=== PATIENT | female | born 1945 | race Caucasian/White ===

== ENCOUNTER 2018-12-09 16:22 | Outpatient (REF) | payer MEDICARE, OTHER, SELFPAY ==
[2018-12-09 19:50] LABS: Albumin 3.6 g/dL (3.4-5.0); BUN 20 mg/dL (7-18); CREATININE 1.07 mg/dL (0.55-1.02); Calcium 9.2 mg/dL (8.5-10.1); Chloride 104 mmol/L (98-107); Estimated GFR 50.41 (mL/min/1.73m2); Glucose 92 mg/dL (70-100); PHOSPHORUS 4.6 mg/dL (2.6-4.7); Potassium 4.1 mmol/L (3.5-5.1); Sodium 143 mmol/L (136-145)
[2018-12-09 19:53] LABS: HCT 37.6 % (36.0-46.0); HGB 12.3 g/dL (12.0-15.5); Mean Corp. HGB Concentration 32.7 g/dL (32.0-36.0); Mean Corpuscular Hemoglobin 29.4 pg (27.0-33.0); Mean Corpuscular Volume 89.7 fL (80-95); Mean Platelet Volume 11.6 fL (8.0-11.0); Platelet Count 244 x1000/uL (130-400); RBC 4.19 m/cumm (4.00-5.20); RBC Distribution Width 12.9 % (11.7-14.6); White Blood Cell Count 6.72 k/cumm (4.4-10.8)
[2018-12-12 09:46] LABS: Parathyroid Hormone,Intact 40 pg/ml (19-88)
[2018-12-14 14:43] LABS: 25-Hydroxy D Total 46 ng/mL; 25-Hydroxy D2 <4.0 ng/mL; 25-Hydroxy D3 46 ng/mL
== END 2018-12-09 16:42 ==
LOC: NCHCN 16:22
PROVIDERS: PCP Internal Medicine; Visit Provider Internal Medicine
DX: E55.9 Vitamin D deficiency, unspecified (principal); I10 Essential (primary) hypertension; R25.2 Cramp and spasm; M19.90 Unspecified osteoarthritis, unspecified site; N13.30 Unspecified hydronephrosis
CPT/HCPCS: 80069; 82306; 85027; 83970; 84550

== ENCOUNTER 2018-12-14 15:23 | Outpatient (REF) | payer MEDICARE, OTHER, SELFPAY ==
[2018-12-14 21:24] LABS: Creatinine,Urine 52.61 mg/dL
[2018-12-14 21:36] LABS: Total Volume 1900 ml
[2018-12-16 09:22] LABS: Calcium Urine 2.4 mg/dl; Calcium Urine 24 hr 46 mg/24hr (100-300); Uric Acid Urine 25.3 mg/dl; Uric Acid Urine 24hr 481 mg/24h (250-750)
[2018-12-16 14:37] LABS: Oxalate Conc (mmol/L) 0.12 mmol/L; Oxalate Concentration 10.6 mg/L; Oxalate, U 0.23 mmol/24 h; Oxalate, U 20.2 mg/24 h (9.7 - 40.5); Urine Volume 1900 mL
== END 2018-12-14 15:43 ==
LOC: NCHCN 15:23
PROVIDERS: PCP Internal Medicine; Visit Provider Internal Medicine
DX: N13.30 Unspecified hydronephrosis (principal)
CPT/HCPCS: 81050; 82340; 82570; 83945; 84560

== ENCOUNTER 2019-11-16 13:07 | Outpatient (REF) | payer MEDICARE, OTHER, SELFPAY ==
[2019-11-16 19:53] LABS: Anion Gap 7.5 mmol/L (3-11); BUN 23 mg/dL (7-18); CO2 29.5 mmol/L (21.0-32.0); Calcium 8.8 mg/dL (8.5-10.1); Chloride 107 mmol/L (98-107); Glucose 88 mg/dL (74-106); Potassium 4.2 mmol/L (3.5-5.1); Sodium 144 mmol/L (136-145)
[2019-11-16 20:02] LABS: HCT 34.5 % (36.0-46.0); Mean Corp. HGB Concentration 31.9 g/dL (32.0-36.0); Mean Corpuscular Hemoglobin 28.8 pg (27.0-33.0); Mean Corpuscular Volume 90.3 fL (80-95); Mean Platelet Volume 11.5 fL (8.0-11.0); Platelet Count 240 x1000/uL (130-400); RBC 3.82 m/cumm (4.00-5.20); RBC Distribution Width 12.9 % (11.7-14.6); White Blood Cell Count 4.13 k/cumm (4.4-10.8)
== END 2019-11-16 13:27 ==
LOC: NCHCN 13:07
PROVIDERS: PCP Internal Medicine; Visit Provider Internal Medicine
DX: D64.9 Anemia, unspecified (principal); I10 Essential (primary) hypertension; M25.511 Pain in right shoulder
CPT/HCPCS: 80048; 85027

== ENCOUNTER → 2020-11-11 13:33 | Outpatient (BNVA) | payer MEDICARE, OTHER, SELFPAY | PROVIDERS: PCP Internal Medicine; Visit Provider Psychiatry & Neurology Neurology | DX: G20 Parkinson's disease (principal); R26.89 Other abnormalities of gait and mobility; H54.7 Unspecified visual loss; K59.00 Constipation, unspecified | CPT/HCPCS: 99205 ==

== ENCOUNTER 2020-12-05 20:19 | Outpatient (REF) | payer MEDICARE, OTHER, SELFPAY ==
[2020-12-05 19:12] LABS: HCT 33.8 % (36.0-46.0); MCH 29.5 pg (27.0-33.0); MCHC 32.5 % (32.0-36.0); MCV 90.6 fL (80-95); MPV 11.4 fL (8.0-11.0); Platelet Count 251 10^3/uL (130-400); RBC 3.73 10^6/uL (3.93-5.22); RDW 12.9 % (11.7-14.6); WBC 5.01 10^3/uL (4.4-10.8)
[2020-12-05 19:40] LABS: ALT 11 U/L (14-59); AST 20 U/L (15-37); Albumin 3.4 g/dL (3.4-5.0); Alkaline Phosphatase 52 U/L (46-116); Anion Gap 8.1 mmol/L (3-11); BUN 31 mg/dL (7-18); Bilirubin, Total 0.3 mg/dL (0.2-1.0); CO2 27.9 mmol/L (21.0-32.0); CREATININE 1.1 mg/dL (0.55-1.02); Calcium 8.8 mg/dL (8.5-10.1); Chloride 105 mmol/L (98-107); Estimated GFR 48.55 (mL/min/1.73m2); Glucose 103 mg/dL (74-106); Potassium 4.3 mmol/L (3.5-5.1); Sodium 141 mmol/L (136-145); TSH 1.34 uIU/mL (0.36-3.74); Total Protein 6.9 g/dL (6.4-8.2)
== END 2020-12-05 20:20 | disposition home or self-care (01) ==
LOC: NCHCN 20:19
PROVIDERS: PCP Internal Medicine; Visit Provider Internal Medicine
DX: R63.4 Abnormal weight loss (principal)
CPT/HCPCS: 80053; 85027; 84443

== ENCOUNTER → 2020-12-09 14:25 | Outpatient (BNVA) | payer MEDICARE, OTHER, SELFPAY | PROVIDERS: PCP Internal Medicine; Referring Provider Internal Medicine; Visit Provider Psychiatry & Neurology Neurology | DX: G20 Parkinson's disease (principal); I10 Essential (primary) hypertension; E78.5 Hyperlipidemia, unspecified | CPT/HCPCS: 99215 ==

== ENCOUNTER 2020-12-11 15:33 | Outpatient (REF) | payer MEDICARE, SELFPAY ==
[2020-12-11 16:10] LABS: Reticulocyte 0.6 % (0.5-2.4)
[2020-12-11 16:20] LABS: Iron 40 ug/dL (50-170); Total Iron Binding Capacity 281 ug/dL (250-450); Transferrin Sat 14 % (15-50)
[2020-12-11 16:47] LABS: Ferritin 112 ng/mL (8-252); Vitamin B12 304 pg/mL (193-986)
[2020-12-16 13:44] LABS: IgA 323 mg/dL (85-499); Interpretation (See Note); Tissue Transglutaminase IgA <1.2 U/mL (<4.0)
== END 2020-12-11 15:34 | disposition home or self-care (01) ==
LOC: NCHCN 15:33
PROVIDERS: PCP Internal Medicine; Visit Provider Internal Medicine
DX: D64.9 Anemia, unspecified (principal); R63.4 Abnormal weight loss
CPT/HCPCS: 82784; 83516; 82607; 82728; 83540; 83550; 85045

== ENCOUNTER → 2021-03-10 10:22 | Outpatient (BNVA) | payer MEDICARE, OTHER, SELFPAY | PROVIDERS: PCP Internal Medicine; Visit Provider Psychiatry & Neurology Neurology | DX: G20 Parkinson's disease (principal); H54.7 Unspecified visual loss; K59.00 Constipation, unspecified; I67.9 Cerebrovascular disease, unspecified; I10 Essential (primary) hypertension; E78.5 Hyperlipidemia, unspecified; Z85.828 Personal history of other malignant neoplasm of skin | CPT/HCPCS: 99215 ==

== ENCOUNTER 2021-06-05 12:16 | Outpatient (REF) | payer MEDICARE, OTHER, SELFPAY ==
[2021-06-05 18:26] LABS: HCT 34.4 % (36.0-46.0); HGB 11.2 g/dL (11.2-15.7); MCH 30.6 pg (27.0-33.0); MCHC 32.6 % (32.0-36.0); MPV 11.2 fL (8.0-11.0); Platelet Count 209 10^3/uL (130-400); RBC 3.66 10^6/uL (3.93-5.22); RDW 11.9 % (11.7-14.6); RDW-SD 41.5 fL; Reticulocyte 0.8 % (0.5-2.4)
[2021-06-05 19:33] LABS: Iron 62 ug/dL (50-170); Total Iron Binding Capacity 269 ug/dL (250-450); Transferrin Sat 23 % (15-50)
[2021-06-05 19:48] LABS: Ferritin 208 ng/mL (8-252)
[2021-06-05 20:06] LABS: Folate > 20.0 ng/mL (8.6-20.0)
== END 2021-06-05 12:17 | disposition home or self-care (01) ==
LOC: NCHCN 12:16
PROVIDERS: PCP Internal Medicine; Visit Provider Internal Medicine
DX: D64.9 Anemia, unspecified (principal); I87.2 Venous insufficiency (chronic) (peripheral); G20 Parkinson's disease
CPT/HCPCS: 85027; 82728; 82746; 83540; 83550; 85045

== ENCOUNTER → 2021-07-09 14:21 | Outpatient (BNVA) | payer MEDICARE, OTHER, SELFPAY | PROVIDERS: PCP Internal Medicine; Visit Provider Psychiatry & Neurology Neurology | DX: G20 Parkinson's disease (principal); K59.00 Constipation, unspecified; I67.9 Cerebrovascular disease, unspecified; I10 Essential (primary) hypertension; Z85.828 Personal history of other malignant neoplasm of skin | CPT/HCPCS: 99213 ==

== ENCOUNTER → 2022-01-21 14:23 | Outpatient (BNVA) | payer MEDICARE, OTHER, SELFPAY | PROVIDERS: PCP Internal Medicine; Referring Provider Internal Medicine; Visit Provider Psychiatry & Neurology Neurology | DX: G20 Parkinson's disease (principal); K59.00 Constipation, unspecified; I67.89 Other cerebrovascular disease; Z85.828 Personal history of other malignant neoplasm of skin; R39.15 Urgency of urination; R35.1 Nocturia | CPT/HCPCS: 99214 ==

== ENCOUNTER → 2022-04-13 13:09 | Outpatient (BNVA) | payer MEDICARE, OTHER, SELFPAY | PROVIDERS: PCP Internal Medicine; Referring Provider Internal Medicine; Visit Provider Psychiatry & Neurology Neurology | DX: G20 Parkinson's disease (principal); K59.00 Constipation, unspecified; I67.89 Other cerebrovascular disease; N32.81 Overactive bladder; R32 Unspecified urinary incontinence | CPT/HCPCS: 99214 ==

== ENCOUNTER 2022-06-01 19:02 | Outpatient (REF) | payer MEDICARE, OTHER, SELFPAY ==
[2022-06-01 19:00] LABS: HCT 36.9 % (36.0-46.0); HGB 12.4 g/dL (11.2-15.7); MCH 30.8 pg (27.0-33.0); MCHC 33.6 % (32.0-36.0); MCV 92 fL (80-95); MPV 11.4 fL (8.0-11.0); Platelet Count 224 10^3/uL (130-400); RBC 4.03 10^6/uL (3.93-5.22); RDW 12.2 % (11.7-14.6); RDW-SD 41.1 fL; WBC 5.75 10^3/uL (4.4-10.8)
[2022-06-01 19:11] LABS: ALT 10 U/L (14-59); Anion Gap 5.8 mmol/L (3-11); BUN 25 mg/dL (7-18); CO2 29.2 mmol/L (21.0-32.0); Calcium 8.8 mg/dL (8.5-10.1); Calculated LDL 86 mg/dL (<100); Chloride 105 mmol/L (98-107); Cholesterol 167 mg/dL (<200); Estimated GFR 53.91 (mL/min/1.73m2); Glucose 102 mg/dL (74-106); HDL Cholesterol 74 mg/dL (40-60); Potassium 4.7 mmol/L (3.5-5.1); Sodium 140 mmol/L (136-145); Triglyceride 35 mg/dL (<150)
== END 2022-06-01 19:03 | disposition home or self-care (01) ==
LOC: NCHCN 19:02
PROVIDERS: PCP Internal Medicine; Visit Provider Internal Medicine
DX: I10 Essential (primary) hypertension (principal); D64.9 Anemia, unspecified; G20 Parkinson's disease; R29.6 Repeated falls
CPT/HCPCS: 80048; 80061; 85027; 84460

== ENCOUNTER → 2022-07-13 12:54 | Outpatient (BNVA) | payer MEDICARE, OTHER, SELFPAY | PROVIDERS: PCP Internal Medicine; Referring Provider Internal Medicine; Visit Provider Psychiatry & Neurology Neurology | DX: G20 Parkinson's disease (principal); K59.00 Constipation, unspecified; D50.9 Iron deficiency anemia, unspecified; I67.9 Cerebrovascular disease, unspecified; N32.81 Overactive bladder; R32 Unspecified urinary incontinence | CPT/HCPCS: 99214 ==

== ENCOUNTER → 2022-10-08 09:12 | Outpatient (BNVA) | payer MEDICARE, OTHER, SELFPAY | PROVIDERS: PCP Internal Medicine; Referring Provider Internal Medicine; Visit Provider Psychiatry & Neurology Neurology | DX: G20 Parkinson's disease (principal); K59.00 Constipation, unspecified; I67.9 Cerebrovascular disease, unspecified; R32 Unspecified urinary incontinence; N32.81 Overactive bladder; R63.4 Abnormal weight loss; I10 Essential (primary) hypertension | CPT/HCPCS: 99214 ==

== ENCOUNTER → 2023-01-11 12:58 | Outpatient (BNVA) | payer MEDICARE, SELFPAY | PROVIDERS: PCP Internal Medicine; Referring Provider Internal Medicine; Visit Provider Urology | DX: R32 Unspecified urinary incontinence (principal); N32.81 Overactive bladder | CPT/HCPCS: 51798; 81003; 99214 ==

== ENCOUNTER → 2023-02-02 10:50 | Outpatient (BNVA) | payer MEDICARE, SELFPAY | PROVIDERS: PCP Internal Medicine; Referring Provider Internal Medicine; Visit Provider Psychiatry & Neurology Neurology | DX: K59.00 Constipation, unspecified (principal); I67.9 Cerebrovascular disease, unspecified; R63.4 Abnormal weight loss; G20 Parkinson's disease; R32 Unspecified urinary incontinence; N32.81 Overactive bladder | CPT/HCPCS: 99214 ==

== ENCOUNTER 2023-05-26 17:41 | Outpatient (REF) | payer MEDICARE, SELFPAY ==
[2023-05-26 20:22] LABS: Abs Immature Grans 0.01 10^3/uL (0.0-0.06); Absolute Basophil Count 0.05 10^3/uL (0.0-0.2); Absolute Eosinophil Count 0.08 10^3/uL (0.0-0.7); Absolute Lymphocyte Count 0.87 10^3/uL (1.2-3.4); Absolute Monocyte Count 0.45 10^3/uL (0.1-0.8); Absolute Neutrophil Count 3.13 10^3/uL (1.2-6.7); Basophils % 1.1; Eosinophils % 1.7; HCT 34.6 % (36.0-46.0); HGB 11.4 g/dL (11.2-15.7); Immature Grans % 0.2; MCH 30.5 pg (27.0-33.0); MCHC 32.9 % (32.0-36.0); MCV 93 fL (80-95); MPV 11.3 fL (8.0-11.0); Monocytes % 9.8; Neutrophils % 68.2; Platelet Count 263 10^3/uL (130-400); RBC 3.74 10^6/uL (3.93-5.22); RDW 12.3 % (11.7-14.6); RDW-SD 42.2 fL; WBC 4.59 10^3/uL (4.4-10.8)
[2023-05-26 20:37] LABS: Anion Gap 8.3 mmol/L (3-11); BUN 30 mg/dL (7-18); CO2 28.7 mmol/L (21.0-32.0); Calcium 8.6 mg/dL (8.5-10.1); Chloride 105 mmol/L (98-107); Estimated GFR 58.02 (mL/min/1.73m2); Glucose 124 mg/dL (74-106); Potassium 4.1 mmol/L (3.5-5.1); Sodium 142 mmol/L (136-145)
== END 2023-05-26 17:42 | disposition home or self-care (01) ==
LOC: NCHCN 17:41
PROVIDERS: PCP Internal Medicine; Visit Provider Internal Medicine
DX: R43.0 Anosmia (principal); M16.11 Unilateral primary osteoarthritis, right hip; D64.9 Anemia, unspecified; R63.4 Abnormal weight loss
CPT/HCPCS: 80048; 85025

== ENCOUNTER → 2023-06-02 10:46 | Outpatient (BNVA) | payer MEDICARE, SELFPAY | PROVIDERS: PCP Internal Medicine; Visit Provider Psychiatry & Neurology Neurology | DX: K59.00 Constipation, unspecified (principal); I67.9 Cerebrovascular disease, unspecified; R63.4 Abnormal weight loss; I10 Essential (primary) hypertension; G20 Parkinson's disease; R32 Unspecified urinary incontinence; N32.81 Overactive bladder | CPT/HCPCS: 99214 ==

== ENCOUNTER 2023-06-30 14:26 | Outpatient (REF) | payer MEDICARE, SELFPAY ==
[2023-06-30 20:37] LABS: Bilirubin Negative (Negative); Blood Negative (Negative); Clarity Clear (Clear); Glucose Negative (Negative); Ketones Trace mg/dL (Negative); Leukocyte Esterase Negative (Negative); Nitrite Negative (Negative); Specific Gravity 1.025 (1.005-1.025); Urobilinogen 0.2 mg/dL (Up to 0.2); pH 5.5 (5-8)
[2023-06-30 20:47] LABS: Bacteria Negative HPF (Negative); C & S Indicated? Yes; Crystals Rare Calcium Oxalate HPF (Negative); Epithelial Cells Few HPF (Negative); Mucus Trace (Negative); Other Cells Rare Transitional (Negative)
== END 2023-06-30 14:27 | disposition home or self-care (01) ==
LOC: NCHCN 14:26
PROVIDERS: PCP Internal Medicine; Visit Provider Internal Medicine
DX: N32.81 Overactive bladder (principal); R82.998 Other abnormal findings in urine
CPT/HCPCS: 81003; 81015; 87086

== ENCOUNTER → 2023-09-29 10:29 | Outpatient (BNVA) | payer MEDICARE, SELFPAY | PROVIDERS: PCP Internal Medicine; Referring Provider Internal Medicine; Visit Provider Psychiatry & Neurology Neurology | DX: G20.A1 Parkinson's disease without dyskinesia, without mention of fluctuations (principal); R41.3 Other amnesia; L98.9 Disorder of the skin and subcutaneous tissue, unspecified | CPT/HCPCS: 99214 ==

== ENCOUNTER 2023-10-01 19:58 | Outpatient (REF) | payer MEDICARE, SELFPAY ==
[2023-10-01 20:04] LABS: TSH 1.26 uIU/mL (0.36-3.74); Vitamin B12 216 pg/mL (193-986)
== END 2023-10-01 19:59 | disposition home or self-care (01) ==
LOC: NCHCN 19:58
PROVIDERS: PCP Internal Medicine; Visit Provider Internal Medicine
DX: R27.0 Ataxia, unspecified (principal)
CPT/HCPCS: 82607; 84443

== ENCOUNTER → 2023-11-17 13:49 | Outpatient (BNVA) | payer MEDICARE, SELFPAY | PROVIDERS: PCP Internal Medicine; Referring Provider Internal Medicine; Visit Provider Nurse Practitioner Gerontology | DX: N32.81 Overactive bladder (principal); R32 Unspecified urinary incontinence | CPT/HCPCS: 51798; 81003; 99213 ==

== ENCOUNTER 2023-11-17 14:45 | Outpatient (REF) | payer MEDICARE, SELFPAY | END 2023-11-17 14:46 | disposition home or self-care (01) | LOC: LBN 14:45 | PROVIDERS: PCP Internal Medicine; Visit Provider Nurse Practitioner Gerontology | DX: R35.0 Frequency of micturition (principal); R35.1 Nocturia | CPT/HCPCS: 87086 ==

== ENCOUNTER → 2024-02-02 10:29 | Outpatient (BNVA) | payer MEDICARE, SELFPAY | PROVIDERS: PCP Internal Medicine; Referring Provider Internal Medicine; Visit Provider Psychiatry & Neurology Neurology | DX: R26.9 Unspecified abnormalities of gait and mobility (principal); N32.81 Overactive bladder; R63.4 Abnormal weight loss; K59.00 Constipation, unspecified | CPT/HCPCS: 99215 ==

== ENCOUNTER → 2024-05-17 10:29 | Outpatient (BNVA) | payer MEDICARE, SELFPAY | PROVIDERS: PCP Internal Medicine; Referring Provider Internal Medicine; Visit Provider Psychiatry & Neurology Neurology | DX: G20.C Parkinsonism, unspecified (principal); R32 Unspecified urinary incontinence; N32.81 Overactive bladder; K59.00 Constipation, unspecified; R41.3 Other amnesia; R26.9 Unspecified abnormalities of gait and mobility | CPT/HCPCS: 99214 ==

== ENCOUNTER 2024-06-07 19:31 | Outpatient (REF) | payer MEDICARE, SELFPAY ==
[2024-06-07 20:36] LABS: Bilirubin Negative (Negative); Blood Negative (Negative); Clarity Clear (Clear); Glucose Negative (Negative); Ketones Negative (Negative); Leukocyte Esterase Negative (Negative); Nitrite Negative (Negative); Specific Gravity 1.015 (1.005-1.025); Urobilinogen 0.2 mg/dL (Up to 0.2); pH 5.5 (5-8)
== END 2024-06-07 19:32 | disposition home or self-care (01) ==
LOC: NCHCN 19:31
PROVIDERS: PCP Internal Medicine; Visit Provider Nurse Practitioner Family
DX: R35.0 Frequency of micturition (principal)
CPT/HCPCS: 81003

== ENCOUNTER 2024-06-22 19:49 | Outpatient (REF) | payer MEDICARE, SELFPAY ==
[2024-06-22 19:42] LABS: HCT 34.7 % (36.0-46.0); HGB 11.4 g/dL (11.2-15.7); MCH 30.6 pg (27.0-33.0); MCHC 32.9 % (32.0-36.0); MCV 93 fL (80-95); MPV 11.8 fL (8.0-11.0); Platelet Count 252 10^3/uL (130-400); RBC 3.72 10^6/uL (3.93-5.22); RDW 12.9 % (11.7-14.6); RDW-SD 44.1 fL; WBC 5.49 10^3/uL (4.4-10.8)
[2024-06-22 19:47] LABS: Anion Gap 5.3 mmol/L (3-11); BUN 32 mg/dL (7-18); CO2 29.7 mmol/L (21.0-32.0); CREATININE 0.9 mg/dL (0.55-1.02); Calcium 8.9 mg/dL (8.5-10.1); Chloride 104 mmol/L (98-107); Estimated GFR 65.44 (mL/min/1.73m2); Glucose 103 mg/dL (74-106); Potassium 4.7 mmol/L (3.5-5.1); Sodium 139 mmol/L (136-145)
== END 2024-06-22 19:50 | disposition home or self-care (01) ==
LOC: NCHCN 19:49
PROVIDERS: PCP Internal Medicine; Visit Provider Internal Medicine
DX: G20.A1 Parkinson's disease without dyskinesia, without mention of fluctuations (principal); E53.8 Deficiency of other specified B group vitamins; R63.4 Abnormal weight loss
CPT/HCPCS: 80048; 85027

== ENCOUNTER → 2024-07-04 10:31 | Outpatient (BNVA) | payer MEDICARE, SELFPAY | PROVIDERS: PCP Internal Medicine; Visit Provider Psychiatry & Neurology Neurology | DX: G20.C Parkinsonism, unspecified (principal); R41.3 Other amnesia | CPT/HCPCS: 99215 ==

== ENCOUNTER → 2024-09-11 12:08 | Outpatient (BNVA) | payer MEDICARE, SELFPAY | PROVIDERS: PCP Internal Medicine; Referring Provider Internal Medicine; Visit Provider Psychiatry & Neurology Neurology | DX: G20.C Parkinsonism, unspecified (principal); N32.81 Overactive bladder; R26.9 Unspecified abnormalities of gait and mobility; R41.3 Other amnesia | CPT/HCPCS: 99214 ==